=== PATIENT | male | born 1965 | race Caucasian/White ===

== ENCOUNTER 2022-04-30 16:16 | Outpatient (CLI) | payer BC, SELFPAY ==
[2022-04-30 12:39] LABS: Albumin* 4.3 g/dL (3.3-5.0); Chloride* 104 mmol/L (96-114)
[2022-04-30 12:40] LABS: Potassium* 4.2 mmol/L (3.6-5.1); Sodium* 137 mmol/L (135-149)
[2022-04-30 12:41] LABS: Cholesterol* 209 mg/dL (90-199)
[2022-04-30 12:42] LABS: Alkaline Phosphatase* 64 U/L (40-150); Aspartate Amino Transferase* 35 U/L (12-35); Bilirubin Total* 1.1 mg/dL (0.1-1.5); Blood Urea Nitrogen* 21 mg/dL (7-30); Carbon Dioxide* 27 mmol/L (20-32); Creatinine* 1.1 mg/dL (0.5-1.5); Estimated Glomerular Filt Rate 79 ml/min; Glucose* 110 mg/dL (60-115)
[2022-04-30 12:43] LABS: Alanine Aminotransferase* 33 U/L (4-50); Calcium* 9.6 mg/dL (8.4-10.6); HDL Cholesterol* 40 mg/dL (>=40); LDL Cholesterol Calculated 114 mg/dL (<100); Triglycerides* 273 mg/dL (40-149)
[2022-04-30 12:57] LABS: Vitamin D 25 Hydroxy* 24 ng/mL (30-80)
[2022-04-30 13:15] LABS: PSA Screen* 1.78 ng/mL (0.10-4.00)
== END 2022-04-30 16:17 | disposition home or self-care (01) ==
PROVIDERS: PCP Family Medicine; Visit Provider Family Medicine
DX: Z00.00 Encounter for general adult medical examination without abnormal findings (principal); E78.5 Hyperlipidemia, unspecified; I10 Essential (primary) hypertension; E55.9 Vitamin D deficiency, unspecified; Z12.5 Encounter for screening for malignant neoplasm of prostate
CPT/HCPCS: 80053; 80061; 82306; 84153